=== PATIENT | male | born 1985 | race Two or more races ===

== ENCOUNTER 2025-01-08 14:05 | Emergency (ER) | payer OTHER ==
[~2025-01-08] VITALS: Ht 182.9 cm; Wt 95.3 kg
[2025-01-08 14:43] VITALS: BP 110/70; O2SAT 99
[2025-01-08] MEDS ORDERED: 0.9 % SODIUM CHLORIDE 1,000 ML IV STA (15:35)
[2025-01-08 16:15] LABS: BASO % 0.2 % (0.1-1.2); EOS # 0.15 (0.04-0.54); EOS % 1.1 % (0.7-7.0); LYMPH # 1.21 (1.18-3.74); LYMPH % 9.1 % (19.3-53.1); MEAN PLATELET VOLUME 10.10 fl (9.4-12.4); MONO # 1.24 (0.24-0.82); MONO % 9.3 % (4.7-12.5); NEUT # 10.61 (1.56-6.13); NEUT % 80.0 % (34.0-71.1); RED CELL DISTRIBUTION WIDTH 11.1 % (11.6-14.4)
[2025-01-08 16:46] LABS: URINE APPEARANCE Clear; URINE BILIRRUBIN Negative (NEGATIVE); URINE BLOOD Negative; URINE COLOR Yellow; URINE GLUCOSE Negative (NEGATIVE); URINE KETONE Negative (NEGATIVE); URINE LEUKOCYTE Trace; URINE NITRATE Negative; URINE PROTEIN Negative (NEGATIVE); URINE UROBILINOGEN 0.2 E.U./dl
[2025-01-08 16:50] LABS: URINE BACTERIA 105.4 uL (0.0-1933); URINE EPITHELIAL CELLS 3.3 uL (0.0-38.8); URINE WBC 94.2 uL (0.0-23.2)
[2025-01-08 16:56] LABS: URINE CAST 0.14 uL (0.0-1.40); URINE RBC 0.5 uL (0.0-20.8)
[2025-01-08 17:20] LABS: ALT/SGPT 31.0 U/L (12-78); AST/SGOT 22.0 U/L (15-37); BILIRUBIN TOTAL 1.4 mg/dL (0.3-1.2); BUN CREA RATIO 12.0 (7.0-25.0); CREATININE SERUM 1.06 mg/dL (0.70-1.30); GFR 77.78; GLOBULINA 3.1 G/DL (2.4-3.5); GLUCOSE FASTING 104.0 mg/dL (65-100); OSMOLALITY SERUM 280.0 MOSM/KG (275-295)
[2025-01-08] MEDS ORDERED: CEFTRIAXONE SODIUM 1,000 MG VIAL IV STA (17:51)
[2025-01-08] MEDS ORDERED: CEFTRIAXONE SODIUM 1,000 MG VIAL ONE (17:53)
== END 2025-01-08 21:22 | disposition home or self-care (01) ==
LOC: ER 14:05
PROVIDERS: General Practice
DX: N30.90 Cystitis, unspecified without hematuria (principal); D72.829 Elevated white blood cell count, unspecified